=== PATIENT | female | born 1990 | race Two or more races ===

== ENCOUNTER 2018-04-15 06:10 | Day surgery (SDC) | payer BC ==
--- NOTE | 2018-04-14 23:30 | History and Physical Report ---
DATE OF ADMISSION: 04/15/2018 HISTORY OF PRESENT ILLNESS: This is a 27-year-old female who was followed in our office since 05/20/2016. Last time she was seen in March when the patient desired to take the IUD out, which she had placed about 4 years ago. However, during an exam, strings were not identified and attempt to remove IUD without strings failed. So, the patient was explained the problem that in order to remove IUD, she needs to have a procedure, hysteroscopy revision and curettage in order to identify the location of IUD and pull it out under visual control. All possible complications and benefits of the procedure explained. Her previous gynecological history includes a Pap smear, abnormal, followed by colposcopy and followed by LEEP due to positive ECC. Her last Pap smear on 03/17/2018 was negative for intraepithelial lesion or malignancy. PAST MEDICAL HISTORY: She denies medical problems. She denies heart disease or lung disease. She denies liver disease. She never was hospitalized and denies any surgery. ALLERGIES: Not known. FAMILY HISTORY: Includes brother and grandparents with cancer. She does not smoke. She does not drink. REVIEW OF SYSTEMS: Otherwise noncontributory. PHYSICAL EXAMINATION: GENERAL: Reveals well-developed, well-nourished female in no acute distress. VITAL SIGNS: Stable. Blood pressure 110/60, respirations 16, and temperature 98.6. HEENT: Head, normocephalic and atraumatic. Ears, tympanic membranes intact. Eyes, pupils reactive to light and accommodation. SKIN: No lesions. NECK: Supple without thyromegaly or lymphadenopathy. LUNGS: Clear to percussion and auscultation. HEART: Rate and rhythm regular. S1, S2. ABDOMEN: Soft and nontender. Bowel sounds present. Costovertebral angle is nontender. GENITOURINARY: Her pelvic exam revealed Bartholin, urethral, [place] glands within normal limits. Vulva and vagina, no lesions. Cervix, closed. Uterus, 6 weeks size. Adnexa, no masses. IMPRESSION: Lost IUD, history of cervical dysplasia, status post LEEP, normal Pap smear on 03/25/2018. PLAN: Hysteroscopy, removal of IUD, D and C. Vinaey Shrestha M.D. DR: TOMASZ JOB#: [id number] CC:
[~2018-04-15] VITALS: Ht 167.6 cm; Wt 61.2 kg
[2018-04-15] VITALS (12 sets, daily range): BP systolic 92–120; BP diastolic 47–78
--- NOTE | 2018-04-15 00:15 | History and Physical Report ---
DATE OF ADMISSION: 04/15/2018 REASON FOR ADMISSION: Patient desires removal of iud with lost IUD visulized in uterus and strings not visible. HISTORY OF PRESENT ILLNESS: The patient has been followed by me from June 2017. She had moderate dysplasia and underwent a LEEP in September 2017. Post LEEP, she presented in March 2018 for repeat Pap and also complaining of irregular bleeding. She attributes the bleeding to her IUD and wishes for her IUD to be removed. However, since strings were not visible, the patient was prescribed cytotec. However, despite Cytotec, paracervical block, IUD was not reached and removal was not possible. Decision was made to proceed with removal under hysteroscopic guidance with anesthesia. PAST MEDICAL HISTORY: As above. PAST SURGICAL HISTORY: LEEP. ALLERGIES: None. SOCIAL HISTORY: The patient does not drink or smoke. She has a permanent partner. PHYSICAL EXAMINATION: GENERAL: Young female, in no acute distress. VITAL SIGNS: Height 6 feet 5 inches, weight 140 pounds, blood pressure 100/60, respiratory rate 18, and temperature 97.8 degrees. HEAD AND NECK: Pupils are equal and reactive to light. LUNGS: Clear to auscultation bilaterally. CARDIAC: Regular rate and rhythm. ABDOMEN: Soft, nondistended, and nontender. BIMANUAL EXAM: Normal-sized uterus. No adnexal masses. EXTREMITIES: No cords. No cyanosis. No edema. IMAGING DATA: Ultrasound was performed on 03/17/2018, which showed IUD inside the uterus. PLAN: Hysteroscopic removal of IUD. Kylah Roger M.D. DR: CITLALI JOB#: [id number] CC: TIFFANIE
[~2018-04-15 06:10] MED LIST: NKM
[2018-04-15] MEDS ORDERED: cefOXitin Sod 1 GM in D5W 55 ML IVPB ONE (07:00)
[2018-04-15] MEDS ORDERED: fentaNYL 100 mcg/2 mL IV ONE (07:07)
[2018-04-15] MEDS ORDERED: Lidocaine 1% MPF 10mg/ml 5ml ONE (07:07)
[2018-04-15] MEDS ORDERED: Propofol 200mg/20ml IV ONE (07:07)
[2018-04-15] MEDS ORDERED: Ketorolac 30mg Inj ONE (07:07)
[2018-04-15] MEDS ORDERED: Midazolam 2mg/2ml Inj ONE (07:07)
[2018-04-15] MEDS ORDERED: cefOXitin 1gm Inj ONE (07:16)
--- NOTE | 2018-04-15 07:41 | Anethesia Preoperative Eval ---
Anesthesia Pre-op PMH/ROS General Date of Evaluation: Apr 15, 2018 Time of Evaluation: 07:25 Anesthesiologist: Maria Luisa ASA Score: ASA 2 Mallampati Score Class I : Soft palate, uvula, fauces, pillars visible Class II: Soft palate, uvula, fauces visible Class III: Soft palate, base of uvula visible Class IV: Only hard plate visible Mallampati Classification: Class II Surgeon: Preis Diagnosis: Pelvic pain Surgical Procedure: D&C Anesthesia History: none Family History: no anesthesia problems Allergies: Coded Allergies: No Known Allergies (Unverified , 04/14/18) Patient NPO?: Yes Past Medical History Cardiovascular: Denies: HTN, CAD, LA, valve dz, arrhythmia, other Pulmonary: Denies: asthma, COPD, MELIZA, other Gastrointestinal/Genitourinary: Reports: GERD - mild; Denies: CRI, ESRD, other Neurologic/Psychiatric: Denies: dementia, CVA, depression/anxiety, TIA, other Endocrine: Denies: DM, hypothyroidism, steroids, other HEENT: Denies: cataract (L), cataract (R), glaucoma, [place] (L), [place] (R), other Hematology/Immune: Denies: anemia, DVT, bleeding disorder, other Musculoskeletal/Integumentary: Denies: OA, RA, DJD, DDD, edema, other PMH Narrative: as above PSxH Narrative: LEEP Anesthesia Pre-op Phys. Exam Physician Exam Last Vital Signs Date Time Temp Pulse Resp B/P (MAP) Pulse Ox O2 Delivery O2 Flow Rate FiO2 04/15/18 07:11 97.6 64 20 103/56 98 Room Air Constitutional: NAD Neurologic: CN 2-12 intact Cardiovascular: RRR, no M/R/G Respiratory: CTA Gastrointestinal: S/NT/ND Airway Exam Mallampati Score: Class II MO: full Neck: flexible ROM: full Teeth: intact Dentures: no upper, no lower Anesthesia Pre-op A/P Labs see chart Urine Test Test 04/15/18 06:30 Urine HCG, Qualitative Negative (NEGATIVE) Risk Assessment & Plan Assessment: ASA 2 Plan: GA with LMA Status Change Before Surgery: No Pre-Antibiotics Drug: cefoxitin 1gr. Given Within 1 Hr of Incision: Yes Time Given: 07:55 Ryan Glass MD Apr 15, 2018 07:41
[2018-04-15] MEDS ORDERED: HYDROmorphone 1mg/ml Carpuject SUBQ PRN (08:00)
[2018-04-15] MEDS ORDERED: Tylenol #3 tab (300mg/30mg) ORAL PRN (08:00)
[2018-04-15] MEDS ORDERED: Norco 5mg/325mg tab ORAL PRN (08:00)
[2018-04-15] MEDS ORDERED: D5 1/2NS 1,000 ML IV SCH (08:00)
[2018-04-15] MEDS ORDERED: Metoclopramide 10mg/2ml Inj IVP PRN ×2 (08:00→08:15)
--- NOTE | 2018-04-15 08:00 | Pre-Procedure Note/Attestation ---
Pre-Procedure Note/Attestation Complete Prior to Procedure Planned Procedure: not applicable Procedure Narrative: hysteroscopy, dilation and curretage, removal of IUD Indications for Procedure Pre-Operative Diagnosis: lost IUD Attestation I attest that I discussed the nature of the procedure; its benefits; risks and complications; and alternatives (and the risks and benefits of such alternatives ), prior to the procedure, with the patient (or the patient's legal used equipment sales representative). I attest that, if there was a reasonable possibility of needing a blood transfusion, the patient (or the patient's legal used equipment sales representative) was given the [facility] standardized written summary, pursuant to the Tyler Lobo Blood Safety Act ([place] Health and Safety Code # 1645, as amended). I attest that I re-evaluated the patient just prior to the surgery and that there has been no change in the patient's H&P, except as documented below: Kylah Roger MD Apr 15, 2018 08:00
[2018-04-15] MEDS ORDERED: LR 1000ml 1,000 ML IVLG SCH (08:09)
[2018-04-15] MEDS ORDERED: Ketorolac 30mg Inj IV PRN (08:15)
[2018-04-15] MEDS ORDERED: Meperidine 50mg/ml Inj(FOR RIGORS ONLY) IV PRN (08:15)
[2018-04-15] MEDS ORDERED: DiphenhydrAMINE 50mg/ml Inj IVP PRN (08:15)
[2018-04-15] MEDS ORDERED: fentaNYL 100 mcg/2 mL IV PRN (08:15)
--- NOTE | 2018-04-15 08:31 | Immediate Post-Op Evaluation ---
Immediate Post-Op Evalulation Immediate Post-Op Evalulation Procedure: D&C Hysteroscopy Date of Evaluation: Apr 15, 2018 Time of Evaluation: 08:30 IV Fluids: 1000 Blood Products: none Estimated Blood Loss: min Urinary Output: n/a Blood Pressure Systolic: 95 Blood Pressure Diastolic: 54 Pulse Rate: 52 Respiratory Rate: 20 O2 Sat by Pulse Oximetry: 99 Pain Score (1-10): 1 Nausea: No Vomiting: No Complications none Patient Status: reacts, patent, none Hydration Status: adequate Ryan Glass MD Apr 15, 2018 08:31
--- NOTE | 2018-04-15 09:51 | 48 Hour Post Anesthesia Eval ---
Post Anesthesia Evaluation Procedure: D&C Hysteroscopy Date of Evaluation: Apr 15, 2018 Time of Evaluation: 09:49 Blood Pressure Systolic: 102 0: 54 Pulse Rate: 62 Respiratory Rate: 20 Temperature (Fahrenheit): 97.4 O2 Sat by Pulse Oximetry: 98 Airway: patent Nausea: No Vomiting: No Pain Intensity: 2 Hydration Status: adequate Cardiopulmonary Status: stable Mental Status/LOC: patient returned to baseline Follow-up Care/Observations: n/a Post-Anesthesia Complications: none Follow-up care needed: ready to discharge Ryan Glass MD Apr 15, 2018 09:51
--- NOTE | 2018-04-21 11:26 | Brief Operative Note ---
Immediate Post Operative Note Operative Note Pre-op Diagnosis: lost IUD Procedure: hysteroscopy, removal of IUD Post-op Diagnosis: same strings curled up into fundus Findings: consistent w/pre-op dx studies Surgeon: Acacia Anesthesia: general Specimen: yes - IUD Complications: none Condition: stable Fluids: crystalloid Estimated Blood Loss: none Implant(s) used?: No Kylah Roger MD Apr 21, 2018 11:26
--- NOTE | 2018-04-21 16:15 | Operative Note - Dictated ---
PREOPERATIVE DIAGNOSIS: Lost IUD, strings currently not visible and removal not possible in office. POSTOPERATIVE DIAGNOSIS: same and iud in uterus. PROCEDURE: Diagnostic hysteroscopy with removal of IUD. SURGEON: Kylah Roger M.D. TO[employer]S [employer] PARTS ATTENDANT: None. ANESTHESIOLOGIST: Ryan Glass M.D. ANESTHESIA: General LMA. ESTIMATED BLOOD LOSS: Minimal. PROCEDURE IN DETAIL: After ensuring informed consent, the patient was taken to the operating room where general anesthesia was induced. The patient was sterilely prepped and draped. A weighted speculum was placed in the vagina. Cervix was easily dilated to an 8 Hegar dilator. Hysteroscope was placed inside the uterine cavity. IUD was in the cavity with strings curled up into the fundus. After IUD was removed with polyp forceps, hysteroscope was replaced into the uterine cavity with both ostia visualized. Hysteroscope was withdrawn. All instruments were removed from the vagina. All instrument and lap counts were correct x2. The patient was taken to the recovery area in stable condition. Kylah Roger M.D. DR: BIN JOB#: [id number] CC: TIFFANIE
== END 2018-04-15 10:25 | disposition home or self-care (01) ==
LOC: SUR 06:10
DX: Z30.432 Encounter for removal of intrauterine contraceptive device (principal); K21.9 Gastro-esophageal reflux disease without esophagitis
CPT/HCPCS: 58562; 81025; J0694; J1885; J2250; J2405; J2704; J3010; 94003; 94150